=== PATIENT | male | born 1965 | race Caucasian/White ===

== ENCOUNTER → 2017-03-25 | Outpatient (CLI) | payer BC | END | disposition home or self-care (01) | LOC: CDC 10:54 | DX: Z01.810 Encounter for preprocedural cardiovascular examination (principal) | CPT/HCPCS: 93000 ==

== ENCOUNTER 2017-03-29 19:13 | Emergency (ER) | payer BC ==
[~2017-03-29] VITALS: Ht 188 cm; Wt 98.9 kg
[2017-03-29 20:03] LABS: MCH 30.6 PG (29.0-34.0); MCHC 33.5 G/DL (30.0-36.0); MCV 91.3 FL (86-99); MEAN PLAT.VOLUME 10.2 uM^3 (9.0-12.4); PLATELET COUNT 112 K/uL (156-360); RBC DIS.WIDTH-CV 12.6 % (11.8-14.6); RBC DIS.WIDTH-SD 42.4 % (39-53); RED BLOOD COUNT 4.71 M/uL (4.00-5.50); WHITE BLOOD COUNT 6.1 K/uL (4.1-10.2)
[2017-03-29 20:38] VITALS: BP 138/84
== END 2017-03-29 20:38 | disposition home or self-care (01) ==
LOC: EME → EDBD 19:13 → EME 19:13
PROVIDERS: Emergency Medicine
DX: I97.620 Postprocedural hemorrhage of a circulatory system organ or structure following other procedure (principal)
CPT/HCPCS: 85027; 99281; 99285